=== PATIENT | female | born 1965 | race Caucasian/White ===

== ENCOUNTER 2016-09-13 15:31 | Observation (INO) | payer OTHER ==
--- NOTE | 2016-09-13 15:48 | CPEKG ---
Heart Rate: 69 RR Interval: 870 P-R Interval: 136 QRSD Interval: 72 QT Interval: 420 QTC Interval: 450 P [place]: 50 QRS [place]: 55 T Wave [place]: 15 EKG Severity - NORMAL ECG - EKG Impression: SINUS RHYTHM Electronically Signed By: Shahrzad De Leon 14-Sep-2016 00:23:35
--- NOTE | 2016-09-13 15:54 | EDPHY ---
H & P Stated Complaint: 2 weeks cp(tingly/weight) on chemo /mastectomy in spring Time Seen by Provider: 09/13/16 15:49 HPI/ROS: CHIEF COMPLAINT: Left-sided chest pain. HISTORY OF PRESENT ILLNESS: The patient is a 51-year-old female with a history of breast cancer stage II currently being treated by chemotherapy and double mastectomy who presents with left-sided chest pain and heaviness that began two weeks ago and worsened today. It started intermittent and would last a couple hours at a time but is now becoming more frequent and nearly constant constant. It is worse at night and usually keeps her awake. It is associated with nausea, shortness of breath, intermittent fever, and paresthesias. These pains are different from the pains she has had from her healing mastectomies. She is scheduled for echocardiogram 3 weeks from now. She did have her first session of new chemotherapy on (6 days ago). No cough, rhinorrhea, chills, chest pain, shortness of breath, palpitations, vomiting, diarrhea, urinary complaints, headache, lightheadedness. REVIEW OF SYSTEMS: Aside from elements discussed in the HPI, a comprehensive 10-point review of systems was reviewed and is negative. PAST MEDICAL HISTORY: Breast cancer, double mastectomy. SOCIAL HISTORY: . VITAL SIGNS: Reviewed by me GENERAL: Well-developed, well-nourished, resting comfortably in no respiratory distress. Alopecia from chemotherapy. HEENT: Atraumatic. Eyes: No icterus, no injection. Mouth: moist mucous membranes. No erythema or lesions. Neck: supple with no adenopathy. LUNGS: Clear to auscultation bilaterally, no wheezes, rhonchi or rales. CARDIAC: Regular rate and rhythm, no rubs, murmurs or gallops. THORAX: Double mastectomy. ABDOMEN: Soft, nontender, nondistended, bowel sounds normal. BACK: No CVA tenderness. No rash. EXTREMITIES: No trauma. No edema. Range of motion is normal throughout. NEURO: Alert and oriented, grossly nonfocal. SKIN: Warm and dry, no rash. PSYCHIATRIC: Normal mentation, no agitation. Portions of this note were transcribed by a medical services assistant. I personally performed a history, physical exam, medical decision making, and confirmed accuracy of information the transcribed note. Source: Patient Exam Limitations: No limitations - Personal History LMP (Females 10-55): Over 28 Days Ago Current Tetanus/Diphtheria Vaccine: Unsure - Medical/Surgical History Hx Asthma: No Hx Chronic Respiratory Disease: No Hx Diabetes: No Hx Cardiac Disease: No Hx Renal Disease: No Hx Cirrhosis: No Hx Alcoholism: No Hx HIV/AIDS: No Hx Splenectomy or Spleen Trauma: No Other PMH: breast cancer - Social History Smoking Status: Never smoked Constitutional: Initial Vital Signs Temperature (C) 36.7 C 09/13/16 15:34 Heart Rate 76 09/13/16 15:34 Respiratory Rate 18 09/13/16 15:34 Blood Pressure 103/62 09/13/16 15:34 O2 Sat (%) 99 09/13/16 15:34 O2 Delivery Mode Nasal Cannula Allergies/Adverse Reactions: cephalexin [From Keflex] Allergy (Verified 09/13/16 18:14) Swelling/neck,face,throat Penicillins Allergy (Verified 09/13/16 18:14) difficulty breathing shellfish derived Allergy (Verified 09/13/16 18:14) Sulfa (Sulfonamide Antibiotics) Allergy (Verified 09/13/16 18:14) difficulty breathing Home Medications: Medication Instructions Recorded Herbals/Supplements -Info Only 1 ea PO DAILY 09/13/16 Multivitamins [Multivitamin (*)] 1 each PO DAILY 09/13/16 [place]-3 Fatty Acids [Fish Oil 1000 2,000 mg PO DAILY 09/13/16 mg (*)] Medical Decision Making - Diagnostics EKG Interpretation: 12-LEAD EKG 1.: Please see the full report in Trace Master. My interpretation : Normal sinus rhythm 12-LEAD EKG 2.: Please see the full report in Trace Master. My interpretation : Normal sinus rhythm, left ventricular hypertrophy, t-wave changes inferiorly. Imaging Results: Imaging Impressions Chest X-Ray 09/13/16 16:14 Impression: Negative for acute cardiopulmonary abnormality.. Chest/Thorax CTA 09/13/16 16:51 Impression: 1. No evidence of pulmonary embolic disease. 2. See above report for additional findings. Results called and discussed with Shahrzad De Leon MD on 09/13/2016 at 17:35 Imaging: I viewed and interpreted images myself ED Course/Re-evaluation: 51-year-old female with a current history of breast cancer stage II presents with left-sided chest pain. She has been on two different rounds of chemotherapy and last had chemo 6 days ago. It was her second round of the current treatment. She has a normal exam at this time. We will access her port to obtain blood work. She has requested topical and SQ lidocaine around the port prior to access. Chest x-ray ordered. X-ray of the chest was obtained. I viewed the images myself on the PACS system. My interpretation of the images is: no acute cardiopulmonary disease. The radiologist agrees. I discussed the x-ray findings with the patient. 1642: Consulted with Dr. Rodriguez for Dr. Devine. She has been on Adriamycin which does carry risk for CHF. I reviewed the patient's laboratory studies. Troponin is elevated at 0.06. Hgb low at 7.6, Hct low at 22.5. Plan for admission. Type and cross ordered. 1727: Patient hypotensive at 82/40. Repeat EKG ordered. Plan for bedside ultrasound. 1732: Reassessed patient. Discussed results of workup so far. I have recommended admission and she agrees. Repeat EKG shows new t-wave inversions inferiorly and left ventricular hypertrophy. 325mg PO Aspirin administered. Additional 500mg 1742: CT results conveyed to me by Dr. Avery as negative for PE. Bedside cardiac ultrasound performed by me is negative for pericardial effusion. 1746: Consulted with Dr. Zaidi, hospitalist. He accepts admission to step-down given the patient's hypotension. 1804: Consulted with Dr. Fofana, cardiology. Discussed the patient's elevated troponin and EKG change. Patient is on having ongoing mild chest discomfort. Dr. alcaraz will evaluate the patient in the hospital. 1806: Consulted with Dr. Avilez, oncology, and informed him of the patient's course and admission. Differential Diagnosis: After history and physical examination, the differential for chest pain was considered, including but not limited to, myocardial ischemia, acute coronary syndrome, pulmonary embolus, chest wall pain, pleural inflammation and pulmonary infectious causes. Consult/Admit Bed Type: Dr. Daquan Zaidi, [facility] - Data Points Laboratory Results: Laboratory Results 09/13/16 16:40 09/13/16 16:40 09/13/16 09/13/16 09/13/16 17:37 16:40 16:40 WBC RBC Hgb Hct MCV MCH MCHC RDW Plt Count MPV Neut % (Auto) Lymph % (Auto) [place] % (Auto) Eos % (Auto) Baso % (Auto) Nucleat RBC Rel Count Absolute Neuts (auto) Absolute Lymphs (auto) Absolute Monos (auto) Absolute Eos (auto) Absolute Basos (auto) Absolute Nucleated RBC Immature Gran % Seg Neutrophils % Band Neutrophils % Lymphocytes % Monocytes % Eosinophils % Basophils % Metamyelocytes % Myelocytes % Immature Gran # Absolute Seg Neuts Absolute Band Neuts Absolute Lymphocytes Absolute Monocytes Absolute Eosinophils Absolute Basophils Absolute Metamyelocyte Absolute Myelocytes Platelet Estimate Hypochromasia Microcytic Cells Tear Drop Cells Oval Macrocytes Smear Review By D-Dimer 2.62 ug/mLFEU H ug/mLFEU (0.00-0.50) Sodium 137 mEq/L mEq/L (134-144) Potassium 3.8 mEq/L mEq/L (3.5-5.2) Chloride 104 mEq/L mEq/L (97-110) Carbon Dioxide 23 mEq/l mEq/l (22-31) Anion Gap 10 mEq/L mEq/L (8-16) BUN 7 mg/dL mg/dL (7-23) Creatinine 0.5 mg/dL L mg/dL (0.6-1.0) Estimated GFR > 60 Glucose 81 mg/dL mg/dL (70-100) Calcium 8.7 mg/dL mg/dL (8.5-10.4) Total Bilirubin 0.7 mg/dL mg/dL (0.1-1.4) Conjugated Bilirubin 0.2 mg/dL mg/dL (0.0-0.5) Unconjugated Bilirubin 0.5 mg/dL mg/dL (0.0-1.1) AST 30 IU/L IU/L (14-46) ALT 57 IU/L H IU/L (9-52) Alkaline Phosphatase 75 IU/L IU/L (38-126) Troponin I 0.060 ng/mL H ng/mL (0-0.034) Total Protein 6.0 g/dL L g/dL (6.3-8.2) Albumin 3.6 g/dL g/dL (3.5-5.0) Lipase 101.0 IU/L IU/L (23-300) Patient ABO/Rh A POSITIVE Antibody Screen NEGATIVE Crossmatch IS Only See Detail 09/13/16 16:40 WBC 3.73 10^3/uL L 10^3/uL (3.80-9.50) RBC 2.19 10^6/uL L 10^6/uL (4.18-5.33) Hgb 7.6 g/dL L g/dL (12.6-16.3) Hct 22.5 % L % (38.0-47.0) MCV 102.7 fL H fL (81.5-99.8) MCH 34.7 pg H pg (27.9-34.1) MCHC 33.8 g/dL g/dL (32.4-36.7) RDW 19.4 % H % (11.5-15.2) Plt Count 64 10^3/uL L 10^3/uL (150-400) MPV 12.3 fL H fL (8.7-11.7) Neut % (Auto) Not Reported Lymph % (Auto) Not Reported [place] % (Auto) Not Reported Eos % (Auto) Not Reported Baso % (Auto) Not Reported Nucleat RBC Rel Count 1.1 % H % (0.0-0.2) Absolute Neuts (auto) Not Reported Absolute Lymphs (auto) Not Reported Absolute Monos (auto) Not Reported Absolute Eos (auto) Not Reported Absolute Basos (auto) Not Reported Absolute Nucleated RBC 0.04 10^3/uL H 10^3/uL (0-0.01) Immature Gran % Not Reported Seg Neutrophils % 34 % % Band Neutrophils % 12 % % Lymphocytes % 27 % % Monocytes % 23 % % Eosinophils % 1 % % Basophils % 1 % % Metamyelocytes % 1 % % Myelocytes % 1 % % Immature Gran # Not Reported Absolute Seg Neuts 1.27 10^/uL L 10^/uL (1.70-6.50) Absolute Band Neuts 0.45 10^3/uL 10^3/uL (0.00-0.70) Absolute Lymphocytes 1.01 10^3/uL 10^3/uL (1.00-3.00) Absolute Monocytes 0.86 10^3/uL H 10^3/uL (0.30-0.80) Absolute Eosinophils 0.04 10^3/uL 10^3/uL (0.03-0.40) Absolute Basophils 0.04 10^3/uL 10^3/uL (0.02-0.10) Absolute Metamyelocyte 0.04 10^3/mL H 10^3/mL (0.00-0.00) Absolute Myelocytes 0.04 10^3/mL H 10^3/mL (0.00-0.00) Platelet Estimate DECREASED L (ADEQ) Hypochromasia 2+ H Microcytic Cells 1+ H Tear Drop Cells 2+ H Oval Macrocytes 1+ H Smear Review By Pending D-Dimer Sodium Potassium Chloride Carbon Dioxide Anion Gap BUN Creatinine Estimated GFR Glucose Calcium Total Bilirubin Conjugated Bilirubin Unconjugated Bilirubin AST ALT Alkaline Phosphatase Troponin I Total Protein Albumin Lipase Patient ABO/Rh Antibody Screen Crossmatch IS Only Medications Given: Discontinued Medications Aspirin (Aspirin) 324 mg PO EDNOW ONE Stop: 09/13/16 17:57 Last Admin: 09/13/16 17:58 Dose: 324 mg Sodium Chloride (Ns) 500 mls @ 1,000 mls/hr IV EDNOW ONE PRN Reason: Protocol Stop: 09/13/16 16:42 Last Admin: 09/13/16 16:46 Dose: 500 mls Sodium Chloride (Ns) 500 mls @ 1,500 mls/hr IV ONCE ONE Stop: 09/13/16 18:16 Last Admin: 09/13/16 17:58 Dose: 500 mls Departure - Departure Disposition: [facility] Inpatient Acute Clinical Impression: Elevated troponin Chest pain Qualifiers: Chest pain type: unspecified Qualified Code(s): R07.9 - Chest pain, unspecified Anemia Qualifiers: Anemia type: unspecified type Qualified Code(s): D64.9 - Anemia, unspecified Condition: Fair Report Scribed for: Shahrzad De Leon Report Scribed by: Wade Goodman Date of Report: 09/13/16 Time of Report: 15:54
[2016-09-13] MEDS ORDERED: LIDOCAINE/PRILOCAINE 1 EACH CRTUBE TP ONE (16:06)
[2016-09-13] MEDS ORDERED: NS 500 ML IV ONE ×2 (16:13→17:57)
[2016-09-13] MEDS ORDERED: IOPAMIDOL (ISOVUE 370) 100 ML BTL IV ONE (16:54)
[2016-09-13 16:55] LABS: ABSOLUTE NRBC COUNT 0.04 10^3/uL (0-0.01); ADD DIFF? YES; ADD MORPH? YES; ATYPICAL LYMPHOCYTE FLAG 0 (0-99); FRAGMENT RBC FLAG 0 (0-99); HEMATOCRIT 22.5 % (38.0-47.0); HEMOGLOBIN 7.6 g/dL (12.6-16.3); LIPEMIA HEMOLYSIS FLAG 90 (0-99); MEAN CELL HEMOGLOBIN 34.7 pg (27.9-34.1); MEAN CELL HEMOGLOBIN CONCENTR. 33.8 g/dL (32.4-36.7); MEAN CELL VOLUME 102.7 fL (81.5-99.8); MEAN PLATELET VOLUME 12.3 fL (8.7-11.7); PLATELET CLUMPS FLAG 0 (0-99); PLATELET COUNT 64 10^3/uL (150-400); RED BLOOD CELL COUNT 2.19 10^6/uL (4.18-5.33); RED CELL DISTRIBUTION WIDTH 19.4 % (11.5-15.2)
[2016-09-13 17:04] LABS: ADD SCAN? NO; LEFT SHIFT FLG 290 (0-99); NRBC-AUTO% 1.1 % (0.0-0.2)
[2016-09-13 17:05] LABS: ALANINE AMINOTRANSFERASE 57 IU/L (9-52); ALBUMIN 3.6 g/dL (3.5-5.0); ALKALINE PHOSPHATASE 75 IU/L (38-126); ANION GAP 10 mEq/L (8-16); ASPARTATE AMINOTRANSFERASE 30 IU/L (14-46); BILIRUBIN,TOTAL 0.7 mg/dL (0.1-1.4); BILIRUBIN-CONJUGATED 0.2 mg/dL (0.0-0.5); BILIRUBIN-UNCONJUGATED 0.5 mg/dL (0.0-1.1); CALCIUM 8.7 mg/dL (8.5-10.4); CARBON DIOXIDE 23 mEq/l (22-31); CHLORIDE 104 mEq/L (97-110); CREATININE 0.5 mg/dL (0.6-1.0); GLOMERULAR FILTRATION RATE > 60; GLUCOSE 81 mg/dL (70-100); POTASSIUM 3.8 mEq/L (3.5-5.2); SODIUM 137 mEq/L (134-144)
[2016-09-13 17:34] LABS: PLATELET ESTIMATE DECREASED (ADEQ)
[2016-09-13 17:35] LABS: HYPOCHROMIA 2+; MACROCYTES 1+; MICROCYTES 1+
--- NOTE | 2016-09-13 17:38 | CPEKG ---
Heart Rate: 74 RR Interval: 811 P-R Interval: 132 QRSD Interval: 76 QT Interval: 436 QTC Interval: 484 P [place]: 43 QRS [place]: 41 T Wave [place]: -37 EKG Severity - ABNORMAL ECG - EKG Impression: SINUS RHYTHM EKG Impression: LOW VOLTAGE IN FRONTAL LEADS EKG Impression: LEFT VENTRICULAR HYPERTROPHY EKG Impression: ANTERIOR Q WAVES, POSSIBLY DUE TO LVH EKG Impression: BORDERLINE T ABNORMALITIES, INFERIOR LEADS Electronically Signed By: Shahrzad De Leon 14-Sep-2016 00:23:27
[2016-09-13] MEDS ORDERED: ASPIRIN 81 MG CHEWABLE TAB ONE (17:42)
[2016-09-13] MEDS ORDERED: ASPIRIN 81 MG CHEWABLE TAB PO ONE (17:56)
[2016-09-13] MEDS ORDERED: ONDANSETRON 4 MG/2 ML VIAL IVP PRN (18:58)
[2016-09-13] MEDS ORDERED: ONDANSETRON DISINTEGRATING 4 MG TAB PO PRN (18:58)
[2016-09-13] MEDS ORDERED: ACETAMINOPHEN 325 MG TAB PO PRN (18:58)
[2016-09-13] MEDS: NS W/ 20 KCl/L 1,000 ML IV SCH (21:54)
[2016-09-13] MEDS ORDERED: CALCIUM CARBONATE 500 MG CHEWABLE TAB PO PRN (21:55)
[2016-09-13] MEDS ORDERED: MBX SOLN 30 ML BOTTLE PO PRN (21:56)
--- NOTE | 2016-09-13 22:09 | PDGENHP ---
History and Physical - Chief Complaint Acute chest pain - History of Present Illness primary oncologist: Dr. Devine HPI: 51-year-old female presenting with acute chest pain characterized as pressure, located centrally, with onset of symptoms 2 weeks ago, occurring with activity and with rest. The patient reports that she has had some associated palpitations and tachycardia whenever she exerts herself but she does not note that the chest discomfort particularly escalates. She does endorse that she has experienced some increased reflux symptoms since her chemotherapy dose of Taxotere last . She has not been using any reflux medications and she does not use any other [id number] medications to address her chest discomfort. Prior to her onset of symptoms, the patient had never had any episodes of chest pain. She does report that after her mastectomy, she did not immediately engage in scar therapy modalities, and she has been working with therapy more so recently to loosen up the scar tissue. History Information - Allergies/Home Medication List Allergies/Adverse Reactions: cephalexin [From Keflex] Allergy (Verified 09/13/16 18:14) Swelling/neck,face,throat Penicillins Allergy (Verified 09/13/16 18:14) difficulty breathing shellfish derived Allergy (Verified 09/13/16 18:14) Sulfa (Sulfonamide Antibiotics) Allergy (Verified 09/13/16 18:14) difficulty breathing Home Medications: Herbals/Supplements -Info Only 1 ea PO DAILY 09/13/16 [Last Taken Unknown] Multivitamins [Multivitamin (*)] 1 each PO DAILY 09/13/16 [Last Taken Unknown] [place]-3 Fatty Acids [Fish Oil 1000 mg (*)] 2,000 mg PO DAILY 09/13/16 [Last Taken Unknown] I have personally reviewed and updated: family history, medical history, social history, surgical history - Past Medical History Additional medical history: Stage II breast cancer, status post 6 cycles of chemotherapy, most recently 1 week ago - Surgical History Additional surgical history: mastectomy bilaterally and port placement. C- section - Family History Additional family history: no family history of premature coronary artery disease - Social History Smoking Status: Never smoked Alcohol Use: Other (none recently) Drug Use: None Additional social history: physically active, independent in her ADLs Review of Systems ROS: 10pt was reviewed & negative except for what was stated in HPI & below Cardiac: Reports: chest pain Physical Exam Temp Pulse Resp BP Pulse Ox 36.8 C 75 18 96/51 L 99 09/13/16 20:30 09/13/16 20:30 09/13/16 20:30 09/13/16 20:30 09/13/16 20:30 Constitutional: no apparent distress, cachectic, No uncomfortable Eyes: PERRL, anicteric sclera, EOMI Ears, Nose, Mouth, Throat: moist mucous membranes, hearing normal, ears appear normal, no oral mucosal ulcers Cardiovascular: regular rate and rhythym, no murmur, rub, or gallop, No edema Respiratory: no respiratory distress, no rales or rhonchi, clear to auscultation Gastrointestinal: normoactive bowel sounds, soft, non-tender abdomen, no palpable masses Skin: other ( no erythema or vesicular lesions over her anterior chest, well- healing scars) Musculoskeletal: other ( full range of motion bilateral shoulders without any pain, no particular tenderness to palpation over the anterior chest muscles or bones) Neurologic: AAOx3, sensation intact bilaterally, No weakness ( motor strength 5/ 5) Psychiatric: interacting appropriately, not anxious, not encephalopathic, thought process linear Lab Data & Imaging Review 09/13/16 16:40 09/13/16 16:40 WBC 3.73 10^3/uL (3.80-9.50) L 09/13/16 16:40 RBC 2.19 10^6/uL (4.18-5.33) L 09/13/16 16:40 Hgb 7.6 g/dL (12.6-16.3) L 09/13/16 16:40 Hct 22.5 % (38.0-47.0) L 09/13/16 16:40 MCV 102.7 fL (81.5-99.8) H 09/13/16 16:40 MCH 34.7 pg (27.9-34.1) H 09/13/16 16:40 MCHC 33.8 g/dL (32.4-36.7) 09/13/16 16:40 RDW 19.4 % (11.5-15.2) H 09/13/16 16:40 Plt Count 64 10^3/uL (150-400) L 09/13/16 16:40 MPV 12.3 fL (8.7-11.7) H 09/13/16 16:40 Neut % (Auto) Not Reported 09/13/16 16:40 Lymph % (Auto) Not Reported 09/13/16 16:40 [place] % (Auto) Not Reported 09/13/16 16:40 Eos % (Auto) Not Reported 09/13/16 16:40 Baso % (Auto) Not Reported 09/13/16 16:40 Nucleat RBC Rel Count 1.1 % (0.0-0.2) H 09/13/16 16:40 Absolute Neuts (auto) Not Reported 09/13/16 16:40 Absolute Lymphs (auto) Not Reported 09/13/16 16:40 Absolute Monos (auto) Not Reported 09/13/16 16:40 Absolute Eos (auto) Not Reported 09/13/16 16:40 Absolute Basos (auto) Not Reported 09/13/16 16:40 Absolute Nucleated RBC 0.04 10^3/uL (0-0.01) H 09/13/16 16:40 Immature Gran % Not Reported 09/13/16 16:40 Seg Neutrophils % 34 % 09/13/16 16:40 Band Neutrophils % 12 % 09/13/16 16:40 Lymphocytes % 27 % 09/13/16 16:40 Monocytes % 23 % 09/13/16 16:40 Eosinophils % 1 % 09/13/16 16:40 Basophils % 1 % 09/13/16 16:40 Metamyelocytes % 1 % 09/13/16 16:40 Myelocytes % 1 % 09/13/16 16:40 Immature Gran # Not Reported 09/13/16 16:40 Absolute Seg Neuts 1.27 10^/uL (1.70-6.50) L 09/13/16 16:40 Absolute Band Neuts 0.45 10^3/uL (0.00-0.70) 09/13/16 16:40 Absolute Lymphocytes 1.01 10^3/uL (1.00-3.00) 09/13/16 16:40 Absolute Monocytes 0.86 10^3/uL (0.30-0.80) H 09/13/16 16:40 Absolute Eosinophils 0.04 10^3/uL (0.03-0.40) 09/13/16 16:40 Absolute Basophils 0.04 10^3/uL (0.02-0.10) 09/13/16 16:40 Absolute Metamyelocyte 0.04 10^3/mL (0.00-0.00) H 09/13/16 16:40 Absolute Myelocytes 0.04 10^3/mL (0.00-0.00) H 09/13/16 16:40 Platelet Estimate DECREASED (ADEQ) L 09/13/16 16:40 Hypochromasia 2+ H 09/13/16 16:40 Microcytic Cells 1+ H 09/13/16 16:40 Tear Drop Cells 2+ H 09/13/16 16:40 Oval Macrocytes 1+ H 09/13/16 16:40 D-Dimer 2.62 ug/mLFEU (0.00-0.50) H 09/13/16 16:40 Sodium 137 mEq/L (134-144) 09/13/16 16:40 Potassium 3.8 mEq/L (3.5-5.2) 09/13/16 16:40 Chloride 104 mEq/L (97-110) 09/13/16 16:40 Carbon Dioxide 23 mEq/l (22-31) 09/13/16 16:40 Anion Gap 10 mEq/L (8-16) 09/13/16 16:40 BUN 7 mg/dL (7-23) 09/13/16 16:40 Creatinine 0.5 mg/dL (0.6-1.0) L 09/13/16 16:40 Estimated GFR > 60 09/13/16 16:40 Glucose 81 mg/dL (70-100) 09/13/16 16:40 Calcium 8.7 mg/dL (8.5-10.4) 09/13/16 16:40 Total Bilirubin 0.7 mg/dL (0.1-1.4) 09/13/16 16:40 Conjugated Bilirubin 0.2 mg/dL (0.0-0.5) 09/13/16 16:40 Unconjugated Bilirubin 0.5 mg/dL (0.0-1.1) 09/13/16 16:40 AST 30 IU/L (14-46) 09/13/16 16:40 ALT 57 IU/L (9-52) H 09/13/16 16:40 Alkaline Phosphatase 75 IU/L (38-126) 09/13/16 16:40 Troponin I 0.060 ng/mL (0-0.034) H 09/13/16 16:40 Total Protein 6.0 g/dL (6.3-8.2) L 09/13/16 16:40 Albumin 3.6 g/dL (3.5-5.0) 09/13/16 16:40 Lipase 101.0 IU/L (23-300) 09/13/16 16:40 Patient ABO/Rh A POSITIVE 09/13/16 17:37 Antibody Screen NEGATIVE 09/13/16 17:37 Crossmatch IS Only See Detail 09/13/16 17:37 Visualized and Interpreted EKG results: Yes EKG Interpretation: Positive for: other ( normal sinus rhythm, T-wave inversion in lead 3 evolved from her presenting EKG, poor R-wave progression in lead V2) Assessment & Plan Assessment: 51-year-old female presents with acute chest pain in the setting of stage II breast cancer actively receiving chemotherapy Plan: 1. Chest pain. Acute, new problem this provider, further workup indicated. Potential etiologies include obstructive coronary disease verses scar tissue discomfort versus gastroesophageal reflux disease. - although the patient does not have significant risk factors, she will be significantly at risk for systemic stress from her ongoing chemotherapy and it would be highly useful for the patient to understand whether she has any obstructive coronary disease and is at risk for a myocardial infarction induced by future chemotherapies - consequently, will order treadmill Lexiscan stress test in the setting of new T-wave inversion in her inferior lead as well as marginally elevated troponin level of 0.06 - will monitor on telemetry overnight comma cycle cardiac enzyme - ruled out pulmonary embolism with negative CT angio - will get echocardiogram given her recent chemotherapy and her description of easily exercise induced tachycardia - will empirically give pantoprazole and gauge effect, Tums and Maalox p.r.n. 2. Stage II breast cancer. Chronic, patient received Taxotere 1 week ago and had a significant reaction to paclitaxel she received 4 cycles of another chemotherapy agent prior to those - reviewed outside records including 08/11/2016 therapy note by Kelsie cox describing patient is a therapy for scar tissue and lymphedema - will notify the on-call oncology provider so they may participate in her care 3. Pancytopenia secondary to chemotherapy. Patient is 1 week out from chemotherapy, monitor counts - discussed with Dr. Shahrzad De Leon, given the patient could be experiencing angina in the setting of anemia, she has order for 1 unit PRBCs 4. Hypotension. Acute, unclear significance, systolic blood pressure went from 100-82 without any precipitating medications or other event, getting serum lactic acid level now - status post IV fluids in the emergency department, continue overnight - Getting echo as outlined above - she is currently not manifesting any infectious symptoms so antibiotics will not be pursued Diet. Regular Prophylaxis. High risk patient, Lovenox for Code. Full Disposition. Anticipated discharge is 09/14/2016, pending further workup as outlined above. It should be noted that the original admission order was placed in air and the patient should have been placed under observation at the initial time that order was originally placed.
[2016-09-13] MEDS: PANTOPRAZOLE SODIUM 40 MG TAB PO SCH (22:40)
[2016-09-13 23:09] LABS: TROPONIN I 0.054 ng/mL (0-0.034)
[2016-09-14] MEDS: NS W/ 20 KCl/L 1,000 ML IV SCH (03:14)
[2016-09-14 03:40] VITALS: O2SAT 95
[2016-09-14 05:58] LABS: ABSOLUTE NRBC COUNT 0.14 10^3/uL (0-0.01); ADD DIFF? YES; ATYPICAL LYMPHOCYTE FLAG 0 (0-99); FRAGMENT RBC FLAG 0 (0-99); HEMATOCRIT 23.6 % (38.0-47.0); HEMOGLOBIN 7.9 g/dL (12.6-16.3); LIPEMIA HEMOLYSIS FLAG 80 (0-99); MEAN CELL HEMOGLOBIN 33.1 pg (27.9-34.1); MEAN CELL HEMOGLOBIN CONCENTR. 33.5 g/dL (32.4-36.7); MEAN CELL VOLUME 98.7 fL (81.5-99.8); MEAN PLATELET VOLUME 12.7 fL (8.7-11.7); PLATELET CLUMPS FLAG 0 (0-99); PLATELET COUNT 60 10^3/uL (150-400); RED BLOOD CELL COUNT 2.39 10^6/uL (4.18-5.33)
[2016-09-14 06:01] LABS: ALANINE AMINOTRANSFERASE 50 IU/L (9-52); ALBUMIN 2.6 g/dL (3.5-5.0); ALKALINE PHOSPHATASE 58 IU/L (38-126); ANION GAP 7 mEq/L (8-16); ASPARTATE AMINOTRANSFERASE 27 IU/L (14-46); BILIRUBIN,TOTAL 0.5 mg/dL (0.1-1.4); CALCIUM 8.2 mg/dL (8.5-10.4); CARBON DIOXIDE 22 mEq/l (22-31); CHLORIDE 114 mEq/L (97-110); CREATININE 0.5 mg/dL (0.6-1.0); GLOMERULAR FILTRATION RATE > 60; GLUCOSE 72 mg/dL (70-100); MAGNESIUM 1.9 mg/dL (1.6-2.3); POTASSIUM 4.3 mEq/L (3.5-5.2); SODIUM 143 mEq/L (134-144); TOTAL PROTEIN 4.9 g/dL (6.3-8.2)
[2016-09-14 06:11] LABS: TROPONIN I 0.048 ng/mL (0-0.034)
[2016-09-14 06:25] LABS: ADD MORPH? NO; LEFT SHIFT FLG 300 (0-99); RED CELL DISTRIBUTION WIDTH 20.3 % (11.5-15.2)
[2016-09-14 06:26] LABS: ADD SCAN? NO
[2016-09-14 06:33] LABS: MACROCYTES 1+; MICROCYTES 1+; PLATELET ESTIMATE DECREASED (ADEQ)
[2016-09-14] MEDS: PANTOPRAZOLE SODIUM 40 MG TAB PO SCH (08:45)
[2016-09-14] MEDS ORDERED: OMEGA-3 FATTY ACIDS 1,000 MG CAP PO SCH (09:00)
[2016-09-14] MEDS ORDERED: Herbals/Supplements -Info Only PO SCH (09:00)
[2016-09-14] MEDS ORDERED: MULTIVITAMINS 1 EACH TAB PO SCH (09:00)
[2016-09-14] MEDS ORDERED: ASPIRIN EC 81 MG TAB PO SCH (09:00)
[2016-09-14] MEDS ORDERED: ENOXAPARIN 40 MG/0.4 ML SYR SC SCH (09:00)
--- NOTE | 2016-09-14 09:45 | ECHO ---
[id number] + + [address] : : [place] [address] : : [phone] + + Adult Echocardiographic Report + ------+ :Name: CRISTIAN STOVER KStudy Date: 09/14/2016 08:17 AM : : Hospital Admission Number: [id number] Locatio n: 242: :: 1965 Gender: Female Height: 66 in : :Age: 51 yrs Race: WH Weight: 105 lb : :Reason For Study: Eval LV Fx : : BSA: 1.5 meters 2 : :History: Breast CA, Chemo, Chest Pain : + ------+ MMode/2D Measurements \T\ Calculations IVSd: 0.60 cm LVIDd: 4.4 cm FS: 35.2 % Ao root diam: 2.8 cm LVPWd: 0.68 cm LVIDs: 2.9 cm EDV(Teich): 88.2 ml ACS: 1.7 cm ESV(Teich): 31.1 ml EF(Teich): 64.8 % Normal Measurement Values: + + :LVIDd (3.5-5.7cm) IVSd (0.6-1.1cm) LVPWd (0.6-1.1cm) Aortic Root (2.0-3.7cm)Left Atrium (1.5-4.0cm): :LV Vol(d) (76-115ml) LV Vol(s) (29-48ml) Ejec Fraction (50-65%)PV Esau (0.6- 1.2m/s) TV Esau (0.4-1.0m/s) : :MV E Esau (0.8-1.0m/s)MV A Esau (0.3-1.0m/s)LVOT Esau (0.7-1.2m/s) Asc Ao Esau ( 0.9-1.8m/s) : + + Doppler Measurements \T\ Calculations MV E max esau: Ao V2 max: LV V1 max: PA V2 max: 104.6 cm/sec 146.6 cm/sec 109.1 cm/sec 85.5 cm/sec MV A max esau: Ao max PG: LV V1 max PG: PA max P.9 cm/sec 8.6 mmHg 4.8 mmHg 2.9 mmHg MV E/A: 2.4 TR max esau: 244.3 cm/sec TR max P.9 mmHg RAP systole: 5.0 mmHg RVSP(TR): 28.9 mmHg Left Ventricle The left ventricle is normal in size and function. There is normal left ventricular wall thickness. The left ventricular ejection fraction is normal. Ejection Fraction = 65%. The left ventricular wall motion is normal. Right Ventricle The right ventricle is normal in size and function. Atria Borderline left atrial enlargement. Right atrial size is normal. Mitral Valve The mitral valve is normal in structure and function. There is no evidence of mitral valve prolapse. There is no mitral valve stenosis. There is trace mitral regurgitation. Tricuspid Valve Normal tricuspid valve. Right ventricular systolic pressure is normal. There is mild tricuspid regurgitation. Aortic Valve The aortic valve is normal in structure and function. The aortic valve is trileaflet. There is no aortic stenosis. There is no aortic insufficiency. Pulmonic Valve The pulmonic valve is normal in structure and function. There is no pulmonic valvular regurgitation. Great Vessels The aortic root is normal size. Pericardium/Pleural Trivial posterior pericardial effusion. Conclusion A complete two-dimensional transthoracic echocardiogram was performed (2D, M-mode, Doppler and color flow Doppler). 1. The left ventricle is normal in size and function. The Ejection Fraction = 65%. 2. The mitral valve is normal in structure and function. There is trace mitral regurgitation. 3. The aortic valve is normal in structure and function. 4. Right ventricular systolic pressure estimate is normal. 5. Trivial posterior pericardial effusion. 6. No old sutdies for comparison. Final Reading Physician: Edmar Bo MD electronically signed on 09/14/2016 09:43 AM Ordering Physician: Edmar Zaidi Performed By: Alfredo Elder, [facility]
--- NOTE | 2016-09-14 12:15 | GCON ---
[f rep st] CONSULTATION SITE LEASING AGENT CONSULTATION. REASON FOR ADMISSION: Chest pain. HISTORY: The patient is a very pleasant 51-year-old white female with a past medical history of jak ast cancer. This is stage II, status post 6 cycles of chemotherapy. She presented with complaints of chest pain. This is associated with some palpitations and tachycardia. In discussing with the p atient, she states that she is currently pain free. She is up ambulating without problems. She has an exercise stress test scheduled soon. PAST MEDICAL HISTORY: Again, significant for stage II breast cancer. PAST SURGICAL HISTORY: Bilateral mastectomies and a port placement. ALLERGIES: To cephalexin, penicillin, shellfish and sulfa. SOCIAL HISTORY: No history of tobacco use. Infrequent alcohol use. Her is at her bedside. She has excellent family support. MEDICATIONS: At home include herbal supplements, multivitamin, omega-3 fatty acid. PHYSICAL EXAM: VITAL SIGNS: Blood pressure is 76/41, pulse 85, respirations 16, temperature is 36. 8, oxygen saturation 95% on room air. GENERAL: She is a thin but well-developed 51-year-old white female who is resting comfortably in no acute distress. HEENT: Eyes are PERRLA, EOMI. Throat show s no erythema or tonsillar hypertrophy. NECK: Supple. No cervical adenopathy. HEART: Regular ra te and rhythm without murmurs, rubs, or gallops. LUNGS: Clear to auscultation. No wheeze or rhonc hi. ABDOMEN: Soft, nontender. Bowel sounds are present in all 4 quadrants. EXTREMITIES: No club kurt, cyanosis, or edema. LABORATORIES: White count is 7.0, hemoglobin is 7.9, hematocrit 23, platelet count is 60. Sodium 1 43, potassium 4.3, chloride 114, CO2 is 22, BUN 4, creatinine 0.5, glucose is 72. Troponins are mil dly elevated at 0.54 and 0.48. TSH is 1.96. CT angiogram of the chest shows no evidence of PE. Echocardiogram shows normal ejection fraction. Otherwise normal. IMPRESSION: 1. Stage II breast cancer. 2. Status post bilateral mastectomies. 3. Chest pain, etiology of which is unclear at this time. RECOMMENDATIONS: 1. Continue adequate pain control. 2. The patient is scheduled for a stress test soon. 3. DVT and PE prophylaxis. 4. Stress ulcer prophylaxis. 5. Continue the majority of her home medications. /[id number]/MODL
--- NOTE | 2016-09-14 14:56 | GCON ---
[f rep st] CONSULTATION CARDIOLOGY CONSULTATION. DATE OF CONSULTATION: 09/14/2016 REFERRING PHYSICIAN: Edmar Zaidi MD INDICATION FOR CONSULTATION: Chest discomfort. HISTORY OF PRESENT ILLNESS: The patient is a pleasant 51-year-old female, who presented to [facility] yesterday with complaints of acute onset of substernal left-sided nonradiating chest discomfort, which she describes as a "tingling." She denied any associated shortness of breath, dyspnea with this chest discomfort. She has had separate incidence of palpitations and noticed a tachycardia. She states her baseline heart rate typically is in the 60s. She has noted recently that her heart rate is consistently in the 90s. She denies any associated near-syncope or syncope. She denies any irregular heart beats. The patient is currently in the middle of chemotherapy for stage II breast cancer. She underwent a bilateral mastectomy earlier this year and is currently being managed by Dr. Devine with chemotherapy with plans for radiation after completion of chemotherapy. Currently, at the time of my exam, she is resting comfortably without cardiac complaint. PAST MEDICAL HISTORY: Notable for stage II breast cancer, status post 6 cycles of chemotherapy, most recent chemotherapy was last week with plans for 2 more cycles and followup with radiation. No other significant past medical history. PAST SURGICAL HISTORY: Mastectomy and . FAMILY HISTORY: Negative for premature coronary artery disease. SOCIAL HISTORY: She is . She is lifelong nonsmoker. She rarely drinks alcohol. She is typically physically active. She and her just recently relocated from [place]. MEDICATIONS ON ADMISSION: Include multivitamin and fish oil. PHYSICAL EXAMINATION: VITAL SIGNS: Blood pressure 76/41, heart rate of 59, in sinus rhythm, respiratory rate of 16, oxygen saturation 95% on room air, temperature 36.8. GENERAL: She is awake, alert, oriented, appropriate, in no apparent distress. NECK: There is no evidence of JVP or carotid bruits. LUNGS : Clear to auscultation bilaterally. CARDIAC: S1, S2. There are no murmurs, rubs, or gallops. ABDOMEN: Soft, nontender. EXTREMITIES: There is no evidence of cyanosis, clubbing, or edema. LABORATORY DATA: White blood cell count 7.05, hemoglobin 7.9, hematocrit 23.6, platelets are low at 60. D-dimer was elevated at 2.62. Sodium 143, potassium 4.3, chloride 114, bicarb 22, BUN 7, creatinine 0.5, calcium 8.2, magnesium 1.9. Troponin was mildly elevated at 0.060, trending down to 0.054 and 0.048. TSH is normal. IMAGING DATA: CT of the chest was negative for pulmonary emboli. Complete 2D echocardiogram demonstrates normal left ventricular systolic function with no evidence of wall motion abnormalities with LVEF of 60% to 65%. There is trace pericardial effusion with no evidence of tamponade. EKG demonstrates sinus rhythm with Q-waves in leads V1 and V2 and T-wave inversions in III and aVF. IMPRESSION: 1. New onset of atypical chest discomfort. 2. History of stage II breast cancer, currently going through chemotherapy. The patient is a pleasant 51-year-old female with new onset of acute, atypical left-sided "tingling" chest discomfort. She does have a trace pericardial effusion. A component of this may be pericardial in origin in the setting of chemotherapy. Her tachycardia is most likely secondary to going through chemotherapy and with significant anemia with a hemoglobin of 7.9, hematocrit of 23.6. She also has thrombocytopenia with platelet count of 60. Her troponins are slightly elevated, which may be related to pericardial effusion. Would recommend exercise treadmill stress test without nuclear imaging. In the setting of anemia and thrombocytopenia, would be reluctant to pursue left heart catheterization if treadmill stress test is abnormal, would focus primarily on medical management. PLAN: 1. Exercise treadmill stress test. 2. If stress test is unremarkable, would recommend discharge home. 3. Patient would schedule outpatient followup with limited echo to assess for progression of pericardial effusion in the next 1-2 weeks in my office. Will continue to follow along with her care. 30 min spent coordinating care /[id number]/MODL MTDD
--- NOTE | 2016-09-14 15:51 | SOAPPROG ---
SOAP Progress Note Assessment/Plan: Assessment: 1.) Chest pain with elevated D-Dimer 2.62, with moderate anemia, with nondiagnostic lab/EKG/imaging work up. 2.) Left Breast Cancer, diagnosis 04/2016, S/P bilateral Mastectomy, Stage IIB, [id number],M0 disease, Grade 1. 3/10 LN were (+) with extracapsular extension. Initial treatment with Cyclophosphamide + Doxorubicin Q 14 days x 2 cycles (dose dense scheduling), followed by transfer of care from [facility] to [facility], and S/P Paclitaxel x 1 ( causing debilitating Peripheral Neuropathy) followed by substituting Paclitaxel with Docetaxel x 1- administered09/07/16. Comment: Musculoskeletal pain, including chest pain /chest wall pain could be an expected outcome of Paclitaxel and Docetaxel. He work up for Cardiopulmonary disease is apparently neg thus. She can be discharged when work up completed. She has a follow up with Dr. Fartun Devine in our group for tomorrow, 09/15/16. I recommend and gave the patient an Rx for Gabapentin 100 mg, # 40, 1 refill with instructions to take 1 to 3 tabs prn prn peripheral neuropathy pain Q 6 hours. Plan: See above information. Discharge as soon as today okay with our service. 09/14/16 15:51 Subjective: As of this afternoon, chest pain improved and tolerable. No new sx. and no sx.of vascular/thrombotic nature. Objective: Afebrile, VSS HEENT0 anicteric, alopecia noted, no oral lesions, no facial assymetry Neck- supple Chest- clear, no pleural friction rubs, R/L mastectomy sites well healed and NT CVS- RSR, no extra HS ABD-thin, flat nontender EXt- no edema, skin intact Labs as noted here: Hgb 7.9, PLT 60, WBC 7.05 BUN/CR 4/0.5, Glu 72, K+ 4.3 CTA, Echo, CXR, EKG noted Vital Signs Temp Pulse Resp BP Pulse Ox 36.8 C 85 16 76/41 L 95 09/14/16 07:42 09/14/16 08:45 09/14/16 07:42 09/14/16 07:42 09/14/16 08:45 Laboratory Results 09/14/16 05:30 09/14/16 05:30 09/13/16 09/14/16 09/15/16 05:59 05:59 05:59 Intake Total 3943 Output Total 3000 1150 Balance 943 -1150 ICD10 Worksheet Patient Problems: Problems Problem Status Onset Anemia Acute Chest pain Acute Elevated troponin Acute
[2016-09-14 16:03] VITALS: PULSE 66; RESP 14; TEMP 98.7
--- NOTE | 2016-09-14 16:57 | HOSPPROG ---
Hospitalist Progress Note Assessment/Plan: 51 yo F w breast CA here w cp 8 min on treadmill w no hypotension, some ST depresiion transfused home today see samina glez Subjective: case d/w dr ohara Objective: Vital Signs Temp Pulse Resp BP Pulse Ox 37.1 C 66 14 77/37 L 95 09/14/16 16:00 09/14/16 16:00 09/14/16 16:00 09/14/16 16:00 09/14/16 16:00 Laboratory Results 09/14/16 05:30 09/14/16 05:30 09/13/16 09/14/16 09/15/16 05:59 05:59 05:59 Intake Total 3943 Output Total 3000 1150 Balance 943 -1150 - Physical Exam Constitutional: no apparent distress, appears nourished Eyes: PERRL, anicteric sclera Ears, Nose, Mouth, Throat: moist mucous membranes, hearing normal Cardiovascular: regular rate and rhythym, no murmur, rub, or gallop Respiratory: no respiratory distress, no rales or rhonchi Gastrointestinal: normoactive bowel sounds, soft, non-tender abdomen Genitourinary: no bladder fullness, No hernandez in urethra Skin: warm Musculoskeletal: full muscle strength Neurologic: AAOx3 ICD10 Worksheet Patient Problems: Problems Problem Status Onset Anemia Acute Chest pain Acute Elevated troponin Acute
[2016-09-14 17:03] VITALS: BP 81/51
--- NOTE | 2016-09-14 17:33 | CPEKG ---
Heart Rate: 66 RR Interval: 909 P-R Interval: 144 QRSD Interval: 76 QT Interval: 440 QTC Interval: 461 P [place]: 44 QRS [place]: 21 T Wave [place]: -22 EKG Severity - BORDERLINE ECG - EKG Impression: SINUS RHYTHM EKG Impression: ATRIAL PREMATURE COMPLEX EKG Impression: BORDERLINE T ABNORMALITIES, INFERIOR LEADS Electronically Signed By: Edmar Bo 14-Sep-2016 17:31:07
--- NOTE | 2016-09-14 18:06 | GDS ---
[f rep st] DISCHARGE SUMMARY DISCHARGE DIAGNOSES: 1. Chest pain. 2. Pancytopenia, secondary to breast chemotherapy. 3. Breast cancer. 4. Low risk but positive stress test. 5. History of mastectomy. Please see admission history and physical by Dr. Edmar Zaidi. The patient presented with chest pain . She was found to be anemic. She had a weakly positive troponin. She had no PE on CTA. She had an EKG with no ischemic changes. She had troponin that was in the positive range, but it was somewh at flat. She was found to be have a new anemia with a hemoglobin of 7.6. She received a unit of pa cked cells. She had a stress test that showed 8 minutes of exercise with augmentation of a low bloo d pressure, and [address] depressions. Given her pancytopenia and complex medical story, further work up was not recommend. She is discharged home. She has outpatient followup with Oncology. She was given a PPI because she also has some reflux-like symptoms. /[id number]/MODL
--- NOTE | 2016-09-14 19:27 | CPR ---
[f rep st] NONINVASIVE CARDIAC PROCEDURE REPORT DATE OF PROCEDURE: 09/14/2016 PROCEDURE PERFORMED: Exercise treadmill stress test. ORDERING PHYSICIAN: Naveen Wallace MD REASON FOR TEST: 1. Chest discomfort. 2. Breast cancer, going through chemotherapy. RESTING PORTION: Resting EKG shows a regular sinus rhythm with a rate of 67. There are no ischemic changes noted. Resting blood pressure 86/47, oxygen saturation 93%. STRESS PORTION: She was exercised according to the Thomas protocol for a total of 8 minutes. In the last minute, she had some mild chest pressure. There was an occasional PVC noted in the last stage of exercise. Her blood pressure peaked at 122/64. She reached a MET level of 9.1, peak heart rate 160, which was near max heart rate. She exercised for a total of 8 minutes. She had chest pressure, she described as mild in the last minute of exercise. She did have some [address]-upsloping depression at that time.Ryder Treadmill score: -1 ( moderate risk) RECOVERY: She recovered spontaneously with her heart rate coming down nicely over a period of 3 minutes. Recovery heart rate 80, recovery blood pressure 112 /64. There were no EKG changes of ischemia in recovery. The upsloping ST- change resolved. She feels well at the conclusion of the test. No ischemic changes. Tracings will be reviewed with Dr. Naveen Wallace, ordering physician. IMPRESSION: This is a borderline treadmill stress test. /[id number]/MODL MTDD
== END 2016-09-14 17:14 | disposition home or self-care (01) ==
LOC: INTOOBSV 17:56 → F2N 20:15
PROVIDERS: ADMIT Internal Medicine; ATTEND Internal Medicine
PROC: 30233N1 Transfusion of Nonautologous Red Blood Cells into Peripheral Vein, Percutaneous Approach (ICD-10-PCS; principal; 2016-09-13)
DX: R07.89 Other chest pain (principal); D61.810 Antineoplastic chemotherapy induced pancytopenia; I95.9 Hypotension, unspecified; Z85.3 Personal history of malignant neoplasm of breast; Z90.13 Acquired absence of bilateral breasts and nipples
CPT/HCPCS: 36430; 71020; 71275; 93005; 93017; 93306; 97161; 99285; G0378; P9016; Q9967

== ENCOUNTER → 2017-02-08 | Outpatient (CLI) | payer OTHER | LOC: FIMAGING 14:49 | PROVIDERS: ATTEND Internal Medicine Hematology & Oncology | DX: Z13.820 Encounter for screening for osteoporosis (principal); M85.80 Other specified disorders of bone density and structure, unspecified site; Z85.3 Personal history of malignant neoplasm of breast; Z78.0 Asymptomatic menopausal state ==

== ENCOUNTER 2017-12-12 10:14 | Emergency (ER) | payer OTHER ==
[2017-12-12] MEDS ORDERED: NS 1,000 ML IV ONE ×2 (10:40→11:27)
--- NOTE | 2017-12-12 10:40 | EDPHY ---
General - History Smoking Status: Never smoked Time Seen by Provider: 12/12/17 10:21 Narrative: CHIEF COMPLAINT: I passed out and hit my head HISTORY OF PRESENT ILLNESS: Patient presents by private vehicle with her spouse with complaints of "I passed out and hit my head." She reports that in the hot tub last night for around 10-15 minutes. Around 11:00 p.m. She exited the hot tub. Within 5-10 minutes, she felt very lightheaded, queasy and "I passed out." She is amnestic to the events. Her was then the adjacent room heard her hit the ground. He immediately tender. He found her lying on the ground"kind of out of it." No seizure-like activity described. No unilateral complaints described. No slurred speech witness. She states she does have a mild headache today, that was moderate to severe last night. She states that she had some bleeding from the site that stopped. She has no neck pain or stiffness. She describes some tingling of her left hand foot last night that was brief and quickly resolved. She has no chest pain now or preceding this. She has no previous exertional chest pain or syncope with exercise. She reports a history of low blood pressure. She also reports history of breast cancer status post chemotherapy and radiation. She had developed pericardial effusion with this that is resolved without intervention. She has no recent illness. No incontinence. No vomiting or visual disturbance. No other associated complaints or modifying factors REVIEW OF SYSTEMS: 10 systems were reviewed and negative with the exception of the elements mentioned in the history of present illness. PCP: None SPECIALISTS: Dr. Devine, oncology PAST MEDICAL HISTORY: Bilateral breast cancer, postmenopausal PAST SURGICAL HISTORY: No recent surgical history SOCIAL HISTORY: Nonsmoker. Lives independently with her spouse. Works as a speech therapist FAMILY HISTORY: Noncontributory EXAMINATION: General Appearance: Alert, no distress Head: normocephalic. Superficial hematoma to the occiput with abrasion. No puncture laceration. No Bryson sign. No raccoon eyes. No depression or deformity. Eyes: Pupils equal and round, no conjunctival pallor or injection ENT, Mouth: Mucous membranes moist. No rhinorrhea. Ears are clear without hemotympanum. Neck: Normal inspection, supple, non-tender. No crepitus or deformity. No meningismus Respiratory: Lungs are clear to auscultation Cardiovascular: Regular rate and rhythm. No murmur. Good signs of perfusion distally Gastrointestinal: Abdomen is soft and nontender Back: non-tender, no bony abnormalities Neurological: GCS 15. A&O, nonfocal, normal gait. Strength is symmetric in all 4 limbs. Light sensory symmetric in the upper lower extremities. No pronator drift. Normal [id number]. NIH stroke scale 0. Skin: Warm and dry, no rash. Superficial occipital scalp abrasion. Extremities: Nontender, no pedal edema. Symmetric range of motion. Psychiatric: Mood and affect normal DIFFERENTIAL DIAGNOSES: Including but not limited to orthostasis, syncope, cardiomyopathy, conduction delay, electrolyte disturbance, ACS, PE, TIA, CVA, vertebrobasilar syndrome MDM: 10:25 a.m. Described likely syncopal episode last night after exiting the hot tub. Patient had no chest pain or exertional component of this. She did feel lightheaded preceding this without any stroke-like symptoms. Vital signs are within normal limits. She has minimal symptoms today. EKG will be obtained. IV established. We will obtain cardiac workup, chest x-ray, orthostatic vital signs. IV fluid to be infused. I have discussed the case with Dr. Moreno. She is in no acute distress with vital signs within normal limits. Tdap will be updated given the wound on her head. 10:45 a.m. Orthostatic vital signs are positive with a 25 beat per minute change in heart rate from lying to standing position. IV fluid is already infusing. 11:25 a.m. Patient re-evaluated. We discussed her negative laboratory studies. We discussed her positive orthostatic vital signs in the need for IV fluid. She has already had 1 L and she is currently receiving her 2nd. She is feeling better. She declined any medication for headache. I do not feel she warrants any further imaging but I will recheck her after her 2nd L fluid. Patient has also been evaluated by Dr. Moreno 12:35 p.m. Patient re-evaluated. She has received her 2nd L IV fluid. She has ambulated on her own to the restroom. She is feeling significantly better would like to go home. No chest pain. No lightheadedness. We discussed increase fluid intake. We discussed follow up with her established emr implementation specialist. We discussed ED precautions for loss of consciousness, chest pain, shortness of breath, headache, neck pain. She is comfortable this plan. She is well- appearing and discharged home stable condition with her spouse. SUPERVISION: Patient was evaluated and examined in conjunction with my secondary supervising physician as documented. We have both examined the patient. CONSULTATION: None (Kel Reyes) Medical Decision Making: PHYSICIAN DOCUMENTATION: The patient was evaluated and managed by the Physician Lollypop Machine Operator and myself. I have reviewed the chart and agree with the findings and plan of care as documented. In addition, I examined the patient myself at 1115. History confirmed as syncope last night. Physical findings as follows: Some swelling on the right occiput of her head but normal speech, no cervical spine tenderness. I do not think she has red flags to suggest she is high risk for intracranial bleed, subarachnoid, subdural or epidural hematoma. Cervical spine cleared clinically. More likely mild hypovolemia with orthostatic changes in pulse but I think malignant dysrhythmia or other emergent cause for her syncope is unlikely. I am the secondary supervising physician. (Calvin Moreno) - Diagnostics Imaging Results: Imaging Impressions Chest X-Ray 12/12/17 10:41 Impression: No acute abnormality. - Objective Vital Signs: Initial Vital Signs Temperature (C) 36.9 C 12/12/17 10:18 Heart Rate 87 12/12/17 10:18 Respiratory Rate 16 12/12/17 10:18 Blood Pressure 114/71 12/12/17 10:18 O2 Sat (%) 96 12/12/17 10:18 O2 Delivery Mode Room Air Allergies/Adverse Reactions: cephalexin [From Keflex] Allergy (Verified 12/12/17 10:17) Swelling/neck,face,throat Penicillins Allergy (Verified 12/12/17 10:17) difficulty breathing shellfish derived Allergy (Verified 12/12/17 10:17) Sulfa (Sulfonamide Antibiotics) Allergy (Verified 12/12/17 10:17) difficulty breathing Home Medications: Medication Instructions Recorded Herbals/Supplements -Info Only 1 ea PO DAILY 09/13/16 Multivitamins [Multivitamin (*)] 1 each PO DAILY 09/13/16 Altmar-3 Fatty Acids [Fish Oil 1000 2,000 mg PO DAILY 09/13/16 mg (*)] Tamoxifen Citrate 12/12/17 Laboratory Results: Laboratory Results 12/12/17 10:49 12/12/17 10:49 12/12/17 12/12/17 12/12/17 10:53 10:49 10:49 WBC 5.03 10^3/uL 10^3/uL (3.80-9.50) RBC 4.29 10^6/uL 10^6/uL (4.18-5.33) Hgb 14.2 g/dL g/dL (12.6-16.3) Hct 41.2 % % (38.0-47.0) MCV 96.0 fL fL (81.5-99.8) MCH 33.1 pg pg (27.9-34.1) MCHC 34.5 g/dL g/dL (32.4-36.7) RDW 12.4 % % (11.5-15.2) Plt Count 81 10^3/uL L 10^3/uL (150-400) MPV 10.3 fL fL (8.7-11.7) Neut % (Auto) 86.6 % H % (39.3-74.2) Lymph % (Auto) 7.0 % L % (15.0-45.0) Frontier % (Auto) 5.8 % % (4.5-13.0) Eos % (Auto) 0.2 % L % (0.6-7.6) Baso % (Auto) 0.2 % L % (0.3-1.7) Nucleat RBC Rel Count 0.0 % % (0.0-0.2) Absolute Neuts (auto) 4.36 10^3/uL 10^3/uL (1.70-6.50) Absolute Lymphs (auto) 0.35 10^3/uL L 10^3/uL (1.00-3.00) Absolute Monos (auto) 0.29 10^3/uL L 10^3/uL (0.30-0.80) Absolute Eos (auto) 0.01 10^3/uL L 10^3/uL (0.03-0.40) Absolute Basos (auto) 0.01 10^3/uL L 10^3/uL (0.02-0.10) Absolute Nucleated RBC 0.00 10^3/uL 10^3/uL (0-0.01) Immature Gran % 0.2 % % (0.0-1.1) Immature Gran # 0.01 10^3/uL 10^3/uL (0.00-0.10) RBC/WBC/PLT Morphology TNP Platelet Estimate TNP Sodium 139 mEq/L mEq/L (135-145) Potassium 3.6 mEq/L mEq/L (3.3-5.0) Chloride 103 mEq/L mEq/L (97-110) Carbon Dioxide 26 mEq/l mEq/l (22-31) Anion Gap 10 mEq/L mEq/L (6-14) BUN 9 mg/dL mg/dL (7-23) Creatinine 0.6 mg/dL mg/dL (0.6-1.0) Estimated GFR > 60 Glucose 104 mg/dL H mg/dL (70-100) Calcium 9.2 mg/dL mg/dL (8.5-10.4) Magnesium 2.0 mg/dL mg/dL (1.6-2.3) POC Troponin I 0.01 ng/mL ng/mL (0.00-0.08) Medications Given: Discontinued Medications Diphtheria/Tetanus/Acell Pertussis (Boostrix) 0.5 ml IM .ONCE ONE Stop: 12/12/17 10:51 Last Admin: 12/12/17 11:14 Dose: 0.5 ml Sodium Chloride (Ns) 1,000 mls @ 0 mls/hr IV EDNOW ONE; Wide Open PRN Reason: Protocol Stop: 12/12/17 10:41 Last Admin: 12/12/17 10:56 Dose: 1,000 mls Sodium Chloride (Ns) 1,000 mls @ 0 mls/hr IV EDNOW ONE; Wide Open PRN Reason: Protocol Stop: 12/12/17 11:28 Last Admin: 12/12/17 11:31 Dose: 1,000 mls Point of Care Test Results: Chemistry 12/12/17 10:53 POC Troponin I 0.01 ng/mL ng/mL (0.00-0.08) Departure - Departure Disposition: Home, Routine, Self-Care Clinical Impression: Orthostasis, Dehydration Condition: Good Instructions: Dehydration (ED), Syncope (ED) Additional Instructions: 1. Increase fluid intake for the next few days 2. Exercise with caution 3. Follow up with your established emr implementation specialist 4. I provided the on-call primary care physician for you to establish with 5. Return here for any return of syncope, chest pain, shortness of breath, lightheadedness, dizziness or bleeding Referrals: Naveen Wallace MD [Medical Doctor] - As per Instructions Michelle Engel MD [[facility] Primary Care Provider] - As per Instructions
[2017-12-12] MEDS ORDERED: TDAP ADULT 0.5 ML INJ (BOOSTRIX) IM ONE (10:50)
[2017-12-12 11:10] LABS: PLATELET COUNT 81 10^3/uL (150-400)
--- NOTE | 2017-12-12 11:35 | CPEKG ---
Test Reason : OPEN Blood Pressure : / mmHG Vent. Rate : 066 BPM Atrial Rate : 066 BPM P-R Int : 166 ms QRS Dur : 082 ms QT Int : 438 ms P-R-T Axes : 035 042 -11 degrees QTc Int : 459 ms Sinus rhythm Consider left ventricular hypertrophy Anterior Q waves, possibly due to LVH Borderline T abnormalities, inferior leads Confirmed by Calvin Moreno ([id number]) on 12/12/2017 11:34:20 AM Referred By: Confirmed By:Calvin Moreno
[2017-12-12 12:41] VITALS: BP 100/62
== END 2017-12-12 12:48 | disposition home or self-care (01) ==
DX: R55 Syncope and collapse (principal); S00.01XA Abrasion of scalp, initial encounter; W22.8XXA Striking against or struck by other objects, initial encounter; E86.0 Dehydration; Z23 Encounter for immunization
CPT/HCPCS: 84484-PO